=== PATIENT | male | born 1980 | race Caucasian/White ===

== ENCOUNTER 2018-03-01 14:18 | Emergency (ER) | payer MEDICAID, OTHER ==
[~2018-03-01] VITALS: Ht 182.9 cm; Wt 76.0 kg
[~2018-03-01 14:18] MED LIST: HYDR-882 PO
[2018-03-01 14:55] LABS: BASOPHILS # (AUTO) 0.08 x10^3/uL (0-0.1); BASOPHILS % (AUTO) 1 % (0-1); EOSINOPHILS # (AUTO) 0.23 x10^3/uL (0-0.4); EOSINOPHILS % (AUTO) 2 % (1-7); LYMPHOCYTES # (AUTO) 1.55 x10^3/uL (1-3.4); LYMPHOCYTES % (AUTO) 14 % (22-44); MD NO; MEAN CORPUSCULAR HGB CONC 34.4 g/dL (33.2-36.2); MEAN CORPUSCULAR VOLUME 87.2 fL (81-97); MEAN PLATELET VOLUME 8.4 fL (7.4-10.4); MONOCYTES # (AUTO) 0.75 x10^3/uL (0.2-0.8); MONOCYTES % (AUTO) 7 % (2-9); NEUTROPHILS # (AUTO) 8.72 x10^3/uL (1.8-6.8); NEUTROPHILS % (AUTO) 77 % (42-75); PLATELET COUNT 261 x10^3/uL (130-400); RED CELL DISTRIBUTION WIDTH 12.7 % (9.4-14.8)
[2018-03-01] MEDS ORDERED: HYDROcodone/APAP 5/325 TABLET PO ONE (15:00)
[2018-03-01] MEDS ORDERED: VANCOMYCIN 1,500 MG in SODIUM CHLORIDE 0.9% 250 ML IV SCH (15:00)
[2018-03-01] MEDS ORDERED: SODIUM CHLORIDE FLUSH 10ML SYR IVF ONE (15:00)
[2018-03-01] MEDS ORDERED: VANCOMYCIN 1,500 MG in SODIUM CHLORIDE 0.9% 250 ML IV ONE (15:00)
[2018-03-01] MEDS ORDERED: LIDOCAINE-MPF 1%, 5ML INFIL ONE (15:00)
[2018-03-01] MEDS ORDERED: VANCOMYCIN 1,600 MG in SODIUM CHLORIDE 0.9% 250 ML IV ONE (15:00)
[2018-03-01] MEDS ORDERED: VANCOMYCIN PER PHARMACY IV ONE (15:00)
[2018-03-01 15:02] LABS: ALANINE AMINOTRANSFERASE 19 U/L (12-78); ALBUMIN 3.2 g/dL (3.4-5.0); ANION GAP 7 mmol/L (5-15); CALCIUM 8.4 mg/dL (8.5-10.1); CHLORIDE 106 mmol/L (98-107); CREATININE 0.88 mg/dL (0.7-1.3)
[2018-03-01 15:05] LABS: ALKALINE PHOSPHATASE 116 U/L (45-117); BILIRUBIN,TOTAL 0.9 mg/dL (0.2-1.0); TOTAL PROTEIN 7.3 g/dL (6.4-8.2)
[2018-03-01] MEDS ORDERED: LIDOCAINE-MPF 2%, 2ML ONE (15:12)
[2018-03-01] MEDS ORDERED: HYDROcodone/APAP 5/325 TABLET ONE (15:12)
[2018-03-01 17:25] VITALS: BP 130/81
== END 2018-03-01 18:07 | disposition home or self-care (01) ==
LOC: ED 17:35
DX: L03.011 Cellulitis of right finger (principal)
CPT/HCPCS: 10060; 29105; 36415; 73130; 80053; 85025; 96365; 96366; 99285; J3370; J7050

== ENCOUNTER 2018-03-02 09:23 | Emergency (ER) | payer OTHER ==
[~2018-03-02] VITALS: Ht 182.9 cm; Wt 77.0 kg
[2018-03-02] MEDS ORDERED: VANCOMYCIN PER PHARMACY MC ONE (10:00)
[2018-03-02] MEDS ORDERED: SODIUM CHLORIDE FLUSH 10ML SYR IVF ONE (10:00)
[2018-03-02] MEDS ORDERED: VANCOMYCIN 1,500 MG in SODIUM CHLORIDE 0.9% 250 ML IV ONE (10:30)
[2018-03-02] MEDS ORDERED: BACITRACIN ZINC OINT 500U/GM, 0.9 GM ONE (12:34)
[2018-03-02 13:05] VITALS: BP 107/60
== END 2018-03-02 13:09 | disposition home or self-care (01) ==
LOC: ED 12:36
DX: L03.011 Cellulitis of right finger (principal)
CPT/HCPCS: 96365; 96366; 99285; J3370; J7050

== ENCOUNTER 2018-03-06 11:09 | Emergency (ER) | payer SELFPAY ==
[~2018-03-06] VITALS: Ht 182.9 cm; Wt 77.0 kg
[2018-03-06] MEDS ORDERED: CEFTRIAXONE 1,000 MG ONE (11:59)
[2018-03-06] MEDS ORDERED: CEFTRIAXONE 1,000 MG IM ONE (12:00)
[2018-03-06 12:17] VITALS: BP 117/83
== END 2018-03-06 12:20 | disposition home or self-care (01) ==
LOC: ED 12:19
DX: L03.011 Cellulitis of right finger (principal); F17.200 Nicotine dependence, unspecified, uncomplicated
CPT/HCPCS: 87070; 87075; 87077; 87147; 87205; 96372; 99284; J0696

== ENCOUNTER 2018-03-08 14:23 | Emergency (ER) | payer OTHER ==
[~2018-03-08] VITALS: Ht 182.9 cm; Wt 76.7 kg
[~2018-03-08 14:23] MED LIST changes: +HYDR-3653 PO; -HYDR-882 PO
[2018-03-08 14:25] VITALS: BP 129/83
== END 2018-03-08 15:19 | disposition home or self-care (01) ==
LOC: ED 14:53
DX: L03.011 Cellulitis of right finger (principal); F17.200 Nicotine dependence, unspecified, uncomplicated
CPT/HCPCS: 99281; 99283